=== PATIENT | female | born 1945 | race African-American/Black ===

== ENCOUNTER 2025-06-29 13:12 | Emergency (ER) | payer OTHER ==
[~2025-06-29] VITALS: Ht 167.6 cm; Wt 68.0 kg
[2025-06-29 13:27] VITALS: O2SAT 100
[2025-06-29 16:23] LABS: BASOPHILS % 1.1 % (0.0-2.0); EOSINOPHILS % 3.9 % (0.0-5.0); HEMATOCRIT. 44.1 % (36.0-48.0); HEMOGLOBIN. 14.5 g/dL (12.0-16.0); LYMPHOCYTES % 16.0 % (20.0-50.0); MEAN PLATELET VOLUME 8.5 fl (7.4-10.4); MONOCYTES % 9.7 % (2.0-8.0); NEUTROPHILS % 69.3 % (40.0-76.0); PLATELET 149 x1000/uL (130-400); RED BLOOD CELL COUNT 4.95 mill/uL (4.2-5.4); RED CELL DISTRIBUTION WIDTH 13.3 % (11.6-14.6)
[2025-06-29 16:32] LABS: CREATININE 1.3 mg/dL (0.6-1.0); UREA NITROGEN BLOOD 26.0 mg/dL (9-23)
[2025-06-29 17:41] VITALS: BP 134/66; PULSE 69; RESP 15; TEMP 37.1; O2SAT 100
== END 2025-06-29 17:40 | disposition home or self-care (01) ==
LOC: ER 13:48
DX: I73.9 Peripheral vascular disease, unspecified (principal); I48.91 Unspecified atrial fibrillation; I10 Essential (primary) hypertension; Z79.899 Other long term (current) drug therapy
CPT/HCPCS: 36415; 73590; 80048; 85025; 93971; 99284